=== PATIENT | female | born 1990 | race Caucasian/White ===

== ENCOUNTER 2025-03-25 07:36 | Outpatient (REF) | payer OTHER, SELFPAY ==
--- OUTSIDE RECORDS SUMMARY | 2025-03-25 07:39 | XMS_ITS | Clinical Summary ---
Author Organization [address] [place] [address] [place] [phone] Phone Care Team Providers Care [employer] Inspector Name Role Phone Lawanda Correa MD Primary Care Prov ider Allergies Active Allergy Reactions Criticality Noted Date Comments Bupropion Hcl Other 05/23/2013 Suicidal tendencies Cefaclor 05/23/2013 Medications albuterol HFA (PROAIR HFA ; PROVENTIL HFA ; VENTOLIN HFA) 90 mcg/actuation inhaler Inhale 2 puffs by mouth every 6 (six) hours if needed for wheezing or shortness of breath. 6.7 g 07/10/20 24 Active ammonium lactate (LAC-HYDRIN) 12 % lotion Apply topically 1 (one) time each day. to soles of feet, wear socks to bed 03/15/20 23 Active escitalopram (LEXAPRO) 5 mg tablet 09/07/19 24 Active fluticasone propionate (FLONASE) 50 mcg/actuation nasal spray Administer 2 sprays into each nostril 1 (one) time each day. 06/22/20 23 Active hydrOXYzine HCL (ATARAX) 10 mg tablet Take 1 tablet (10 mg total) by mouth 2 (two) times a day if needed. Active lamoTRIgine (LaMICtal) 25 mg tablet Take 1 tablet (25 mg total) by mouth 1 (one) time each day. FOR 2 WEEKS THEN 2 TABLETS DAILY Active zolpidem CR (AMBIEN CR) 12.5 mg CR tablet Take 1 tablet (12.5 mg total) by mouth at bedtime as needed. 11/25/19 21 Active ondansetron (ZOFRAN) 4 mg tablet Take 1-2 tablets (4-8 mg total) by mouth every 8 (eight) hours if needed for nausea. 06/06/20 23 Active amphetamine-dext roamphetamine XR (ADDERALL XR) 20 mg 24 hr capsule Take 2 capsules (40 mg total) by mouth 1 (one) time each day in the morning. Active cloNIDine (CATAPRES) 0.1 mg tablet 09/07/19 21 Active mv-min/folic/vit K/lycop/coQ10 (DAILY MULTIVITAMIN ORAL) Take by mouth. Activ e ascorbic acid (VITAMIN C) 500 mg chewable tablet Chew. Active acetaminophen (TYLENOL 8 HOUR) 650 mg 8 hr tablet Take 1 tablet (650 mg total) by mouth every 8 (eight) hours if needed for mild pain. Do not crush, chew, or split. 30 tablet 01/17/20 25 Active oxyCODONE (ROXICODONE) 5 mg immediate release tablet Take 1 tablet (5 mg total) by mouth every 6 (six) hours if needed for severe pain for up to 6 doses. Max Daily Amount: 20 mg 6 tablet 01/17/20 25 Active Additional Information Patient not taking.Reported on 01/27/2025 gabapentin (NEURONTIN) 100 mg capsuleIndicatio ns:Right carpal tunnel syndrome Take 1 capsule (100 mg total) by mouth at bedtime. 30 capsule 02/29/20 25 Active gabapentin (NEURONTIN) 100 mg capsuleIndicatio ns:Right carpal tunnel syndrome Take 1 capsule (100 mg total) by mouth at bedtime. 30 capsule 01/11/20 25 025 Discontin ued(Reord er) Active Problems Problem Noted Date Diagnosed Date Carpal tunnel syndrome on left 02/07/2025 Right carpal tunnel syndrome 12/02/2024 Carpal tunnel syndrome of left wrist 12/02/2024 Major depression 08/21/2024 PTSD (post-traumatic stress disorder) 08/21/2024 Amblyopia of left eye 07/10/2024 Gastroesophageal reflux disease 07/10/2024 Genital herpes simplex 07/10/2024 Pancreatitis 07/10/2024 Mixed anxiety depressive disorder 07/10/2024 Tinea cruris 07/10/2024 Morbid obesity ([facility] V24, [facility] V28) 2022 COVID 08/11/2021 Alcohol abuse 11/15/2018 Anxiety 11/15/2018 Binge eating 11/15/2018 Borderline personality disorder ([facility] V24, [facility] V28) 11/15/2018 Severe episode of recurrent major depressive disorder, without psychotic features ([facility] V24, [facility] V28) 11/15/2018 Asthma 05/23/2013 Overview (07/10/2024): With exercise and URI Knee problem 05/23/2013 Encounters Date Type Department Care Team Description 02/28/2025 10:15 AM EDT Office Visit Orthopedic Surgery [facility] [address] [phone] Greer Billingsley MD Right carpal tunnel syndrome 02/07/2025 Telephone Orthopedic Surgery [facility] [address] [phone] Gabriel Cifuentes 02/07/2025 Telephone Orthopedic Surgery [facility] [address] [phone] Greer Billingsley MD 02/04/2025 Telephone Orthopedic Surgery [facility] [address] [phone] Greer Billingsley MD 01/27/2025 2:15 PM EDT Office Visit Orthopedic Surgery [facility] [address] [phone] Jacquie Mckinney PA S/P carpal tunnel release (Primary Dx) 01/16/2025 7:35 AM EDT Anesthesia Event [facility] OR [address] [place] [phone] Mai Hackett MD Elliott, Barbara J, CRNA 01/16/2025 7:30 AM EDT - 01/16/2025 8:45 AM EDT Surgery [facility] OR [address] [place] [phone] Greer Billingsley MD ENDOSCOPIC RELEASE RIGHT CARPAL TUNNEL [[id number] (CPT )] 01/16/2025 5:49 AM EDT - 01/16/2025 9:09 AM EDT Hospital Encounter [facility] OR [address] [place] [phone] Greer Billingsley MD Discharge Disposition: Home or Self Care 01/10/2025 Telephone Orthopedic Surgery [facility] [address] [phone] Greer Billingsley MD 01/02/2025 Telephone Orthopedic Surgery [facility] [address] [phone] Greer Billingsley MD from Last 3 Months Immunizations Name Administration Dates Next Due Influenza Quadravalent, MDCK , 0.5ml, preservative free (Flucelvax) 6mo and older 07/13/2016 Influenza Quadrivalent, 0.5m l, preservative free (Fluarix; FluLaval; Fluzone) ages 6mo and older (Afluria) 3yo and older 04/26/2019 Influenza trivalent, with pr eservative (Fluzone; Afluria) 6mo and older 08/05/2014,05/23/2013 Pneumococcal polysaccharide 23 valent (Pneumovax 23) 2yo and older 08/05/2014 Tdap Tetanus diptheria acell ular pertussis (Boostrix; Adacel) 7yo and older 09/04/2020,09/03/2015,05/23/2013 Surgical History Surgery Date Site/Laterality Comments SECTION, LOW TRANSVERSE CARPAL TUNNEL RELEASE 01/16/2025 Right Right endoscopic carpal tunnel release Medical History Medical History Date Comments Asthma 05/23/2013 DX:Asthma; COMME NT: With exercise and URI Amblyopia 05/23/2013 DX:Amblyopia PTSD (post-traumatic stress disorder) 05/23/2013 DX:PTSD (post-traumatic stress disorder) Major depression 05/23/2013 DX:Major depres liam Knee problem 05/23/2013 DX:Knee problem H/O section 12/14/2015 DX:H/O cesa rean section Psychiatric illness Family History Medical History Relation Name Comments Cervical cancer Aunt 1 maternal aun t Breast cancer Aunt 2 second primary -50 Breast cancer Aunt 3 unilateral Diabetes Father Hypertension Father Other cancer Maternal Grandfather brain-d ied in his 50s Other: cardiac arrest Maternal Grandmother in her 70s Diabetes Mother Mental illness Mother bipolar; diab etes in her 40s-accidental OD Other: etoh Paternal Grandfather in his 40s-liver disease Hypertension Paternal Grandmother ? cause of at age 83 Other: seizures Sister febrile Brain cancer Uncle 1 paternal Other: cancer,other Uncle 2 paternal ; ? primary-colon or prostate Relation Name Status Comments Aunt 1 Aunt 2 Aunt 3 Father Maternal Grandfather Maternal Grandmother Mother Paternal Grandfather Paternal Grandmother Sister Uncle 1 Uncle 2 Social History Tobacco Use Types Packs/Day Years Used Date Smoking Tobacco: Never Smokeless Tobacco: Never Tobacco Cessation:Counseling Given: Not Answered Alcohol Use Standard Drinks/Week Comments Yes 5 (1 standard drink = 0.6 oz pur e alcohol) Interpersonal Safety Answer Date Record ed Physical Abuse 01/16/2025 Verbal Abuse 01/16/2025 Comments No Sex and Gender Information Value Date Recorded Sex Assigned at Not on file Legal Sex Female 6:02 AM EST Gender Identity Not on file Sexual Orientation Not on file Obstetrics History Last Filed Vital Signs Vital Sign Reading Time Taken Comments Blood Pressure 127/77 01/16/2025 8:25 AM EDT Pulse 77 01/16/2025 8:25 AM EDT Temperature 36.5 C (97.7 F) 01/16/2025 8:25 AM EDT Respiratory Rate 16 01/16/2025 8:25 AM EDT Oxygen Saturation 99% 01/16/2025 6:04 AM EDT Inhaled Oxygen Concentration - - Weight 122 kg (270 lb) 02/28/2025 10:44 AM EDT Height 167.6 cm (5' 6 ) 02/28/2025 10:44 AM EDT Body Mass Index 43.58 02/28/2025 10:44 AM EDT Plan of Treatment Health Maintenance Due Date Last Done Comments Hepatitis A Vaccines (1 of 2 - Risk 2-dose series) 2009 Hepatitis B Vaccines (1 of 3 - 19+ 3-dose series) 2009 Pneumococcal Vaccine: Pediatrics (0 to 5 Years) and At-Risk Patients (6 to 49 Years) (2 of 2 - PCV) 08/05/2015 08/05/2014 Cervical Cancer Screening: Pap Smear 12/04/2021 12/04/2018 HIV Screening 06/26/2022 Hepatitis C Screening 06/26/2022 Medicare Annual Wellness Visit 06/26/2022 Social Influencers of Health Screening 06/26/2022 Depression Screening 07/24/2024 10/03/2023 COVID-19 Vaccine ( - season) 2025 07/21/2022, 04/12/2021, 03/15/2021 Influenza Vaccine (#1) 2025 9, 07/13/2016, 08/05/2014, Additional history exists Cholesterol Screening (Lipid Panel) 01/20/2028 01/19/2023 DTaP,Tdap,and Td Vaccines (4 - Td or Tdap) 09/04/2030 09/04/2020, 09/03/2015, 05/23/2013 HIB Vaccines Aged Out No longer eligi ble based on patient's age to complete this topic HPV Vaccines Aged Out No longer eligi ble based on patient's age to complete this topic IPV Vaccines Aged Out No longer eligi ble based on patient's age to complete this topic MMR Vaccines Aged Out No longer eligi ble based on patient's age to complete this topic Meningococcal ACWY Vaccine Aged Out N o longer eligible based on patient's age to complete this topic Meningococcal B Vaccine Aged Out No l onger eligible based on patient's age to complete this topic RSV Immunization Patients Under 20 months Aged Out No longer eligible based on patient's age to complete this topic Varicella Vaccines Aged Out No longer eligible based on patient's age to complete this topic Procedures Procedure Name Priority Date/Time Associated Diagnosis Comments TX ENDOSCOPY WRIST SURGICAL WITH RELEASE TRANSVERSE CARPAL LIGAMENT 01/16/2025 7:35 AM EDT Right carpal tunnel syndrome Case Notes [facility] CT tower Special Needs R/S FROM 12/25 PER GABRIEL VIA TEAMS 12/17 DEPRESSION SCREENING Routine 10/03/2023 LIPID PANEL Routine 01/19/2023 PAP SMEAR Routine 12/04/2018 from Last 3 Months or Most Recently Relevant to Health Maintenance Results * Depression Screening (10/03/2023) Depression Screening abstracted [facility] Provider HEALTH MAINTENANCE Final Result * (ABNORMAL) Lipid panel (01/19/2023) Pathologist [facility] LDL/HDL Ratio 4 0 - 4 Triglycerides 80 0 - 150 mg/dL Cholesterol 179 0 - 200 mg/dL HDL 43 >=40 mg/dL LDL Cholesterol 120(A) 0 - 100 mg/dL Blood Venous blood specimen / Unknown [facility] Provider LAB BLOOD ORDERABLES Sue l Result * Pap Smear (12/04/2018) Pap smear no interpretation , abstracted [facility] Provider HEALTH MAINTENANCE Final Result from Last 3 Months or Most Recently Relevant to Health Maintenance Insurance [employer] Member Subscriber Plan / Payer (Ef fective 2021-Present) Name:HELEN RAE Relation to Subscriber:Self Name:Helen Rae Payer ID:[id number] Group ID:[id number] Type:Not on file Address: [address] [facility] [place] [phone] Care Teams [employer] Inspector Relationship Specialty Start Date End Date Lawanda Correa MD PCP - General Internal Medicine 12/09/20
[2025-03-25 08:05] LABS: MANUAL DIFF FLAG NO
[2025-03-25 08:25] LABS: Hematocrit 40.3 % (37.0-47.0); Hemoglobin 13.5 g/dl (12.0-16.0); Imm Gran Abs Auto 0.02 X10*3/uL (0.00-0.03); Imm Gran Pct Auto 0.2 % (0.0-0.4); Lymphocytes Absolute Auto 3.5 X10*3/uL (1.2-4.9); Mean Corpuscular HGB Conc 33.5 g/dl (31.0-35.0); Mean Corpuscular Hemoglobin 29.0 pg (27.0-33.0); Mean Corpuscular Volume 86.5 fL (80.0-98.0); NRBC Abs Auto 0.000 X10*3/uL (0.0-0.012); NRBC Pct Auto 0.0 /100WBC (0.0-0.2); Platelet Count 278 X10*3/uL (160-400); Red Blood Count 4.66 X10*6/uL (4.20-5.50); White Blood Count 8.4 X10*3/uL (4.8-10.8)
[2025-03-25 08:31] LABS: Hemoglobin A1C 108.9767 umol/L; Total Hemoglobin (HGBA1C) 3539.8295 umol/L
[2025-03-25 09:25] LABS: Folate 10.4 ng/mL (> or = 4.0); Vitamin B12 194 pg/mL (200-900)
[2025-03-25 09:47] LABS: Alanine Aminotransferase 7 U/L (0-31); Albumin Level 4.2 g/dL (3.5-5.0); Alkaline Phosphatase 80 U/L (39-117); Anion Gap 10 (12-20); Aspartate Amino Transferase 18 U/L (5-31); Blood Urea Nitrogen 10 mg/dL (9-16); Calcium 8.8 mg/dL (8.4-10.2); Carbon Dioxide 28 mmol/L (22-29); Chloride 104 mmol/L (96-108); Cholesterol 176 mg/dL (<200); Estimated Glomerular Filt Rate > 60; Gamma Glutamyl Transpeptidase 35 U/L (7-33); HDL Cholesterol 55 mg/dL (>40); Iron 179 mcg/dL (30-160); Lipase 10 U/L (8-78); Percent Iron Saturation 68 % (15-50); Potassium 4.0 mmol/L (3.3-5.1); Sodium 138 mmol/L (135-145); Total Iron Binding Capacity 265 mcg/dL (228-428); Total Protein 6.8 g/dL (6.5-8.0); Triglycerides 83 mg/dL (<150); Unsaturated Iron Binding 86 ug/dL
[2025-03-25 09:57] LABS: Parathyroid Hormone Intact 91.2 pg/mL (8.7-77.1)
[2025-03-25 10:01] LABS: Free T4 (Free Thyroxine) 1.11 ng/dL (0.71-1.85); Thyroid Stimulating Hormone 1.40 uIU/mL (0.32-4.0)
[2025-03-29 08:02] LABS: Triiodothyronine T3 Reverse 24 ng/dL (8-25)
--- OUTSIDE RECORDS SUMMARY | 2025-05-15 20:00 | XMS_ITS | Clinical Summary ---
Author Organization Unknown Care Team Providers Care Sales Program Manager Name Role Phone CATHY BROWN, EDEL Unavailable Unavaillaura ROBERTSON RN, JHONNY Unavailable Unavailable Payers Payer Name Policy Type Policy Number Effective Date Expira tion Date [facility] [id number] MEDICAID [id number] [id number] MEDICARE - [facility] [id number] Problems Condition Name Condition Details Condition Category Status Onset Date Resolution Date Last Treatment Date Treating Clinician Comments MAJOR DEPRESSV DISORDER, RECURRENT SEVERE W/O PSYCH FEATURES Active 07-30 00:00: 00 Allergies, Adverse Reactions, Alerts Allergy Name Allergy Type Status Severity Reaction(s) Onset Date Inactive Date Treating Clinician Comments WELLBUTRIN Propensity to adverse reactions Active 08-08 15:35: 31 Medications Ordered Medication Name Filled Medication Name Start Date Stop Date Current Medication? Ordering Clinician Indication Dosage Frequency Signature (SIG) Comments Components Ambien 10 mg tablet - 00:00: 00 12-31 23:59 :00 No [id number] 10 mg Hs 10 mg Hs (route: oral) Med Classific ation: Central Nervous System Agents citalopram 20 mg tablet - 00:00: 00 12-10 23:59 :00 No [id number] 1 tablet EVERY DAY 1 tablet EVERY DAY (route: oral) Alternate Route: BY MOUTH. Med Classific ation: Central Nervous System Agents clonidine HCl 0.1 mg tablet - 00:00: 00 06-05 23:59 :00 No [id number] 1 tablet Hs 1 tablet Hs (route: oral) Med Classific ation: Cardiovas cular Therapy Agents fluticasone propionate 50 mcg/actuati on nasal spray,suspe nsion 1-14 00:00: 00 11-28 23:59 :00 No [id number] 2 spray DAILY FOR 7 DAYS 2 spray DAILY FOR 7 DAYS (route: nasal) Alternate Route: 2 SPRAYS BY NASAL ROUTE. Med Classific ation: Respirato ry Therapy Agents hydroxyzine HCl 25 mg tablet 08-01 00:00: 00 11-15 23:59 :00 No [id number] FOR ANXIETY 2 tablet TWICE A DAY NEEDED 2 tablet TWICE A DAY NEEDED (route: oral) Alternate Route: BY MOUTH. Med Classific ation: Central Nervous System Agents Lamictal 100 mg tablet 12-23 00:00: 00 12-10 23:59 :00 No [id number] 1 tablet DAILY 1 tablet DAILY (route: oral) Med Classific ation: Central Nervous System Agents quetiapine 25 mg tablet 08-01 00:00: 00 10-30 23:59 :00 No [id number] FOR ANXIETY 1 tablet THREE TIMES A DAY NEEDED 1 tablet THREE TIMES A DAY NEEDED (route: oral) Alternate Route: BY MOUTH. Med Classific ation: Central Nervous System Agents citalopram 10 mg tablet 12-11 00:00: 00 12-31 23:59 :00 No [id number] 3 tablet DAILY 3 tablet DAILY (route: oral) Med Classific ation: Central Nervous System Agents Lamictal 200 mg tablet 12-11 00:00: 00 12-31 23:59 :00 No [id number] 1 tablet DAILY 1 tablet DAILY (route: oral) Med Classific ation: Central Nervous System Agents Ambien CR 12.5 mg tablet,exte nded release 12-31 00:00: 00 08-06 23:59 :00 No [id number] 1 tablet BEDTIME 1 tablet BEDTIME (route: oral) Med Classific ation: Central Nervous System Agents Celexa 40 mg tablet 12-31 00:00: 00 08-06 23:59 :00 No [id number] 1 tablet DAILY 1 tablet DAILY (route: oral) Med Classific ation: Central Nervous System Agents Lamictal 25 mg tablet 12-31 00:00: 00 2022- 03-15 23:59 :00 No [id number] 1 tablet DAILY 1 tablet DAILY (route: oral) Med Classific ation: Central Nervous System Agents Adderall 20 mg tablet 1-14 00:00: 00 Yes [id number] 2 tablet DAILY 2 tablet DAILY (route: oral) Med Classific ation: Central Nervous System Agents Ambien 5 mg tablet 1-14 00:00: 00 06-05 23:59 :00 No [id number] 1 tablet BEDTIME 1 tablet BEDTIME (route: oral) Med Classific ation: Central Nervous System Agents Celexa 20 mg tablet 1-14 00:00: 00 08-30 23:59 :00 No [id number] 1 tablet DAILY 1 tablet DAILY (route: oral) Med Classific ation: Central Nervous System Agents Lamictal 25 mg tablet 3-15 00:00: 00 04-01 23:59 :00 No [id number] 2 tablet DAILY 2 tablet DAILY (route: oral) Med Classific ation: Central Nervous System Agents Lamictal 100 mg tablet 9-11 00:00: 00 07-29 23:59 :00 No [id number] 1 tablet DAILY 1 tablet DAILY (route: oral) Med Classific ation: Central Nervous System Agents Lamictal 150 mg tablet 1-09 00:00: 00 09-23 23:59 :00 No [id number] 1 tablet DAILY 1 tablet DAILY (route: oral) Med Classific ation: Central Nervous System Agents Lexapro 5 mg tablet 2-07 00:00: 00 11-15 23:59 :00 No [id number] 1 tablet DAILY 1 tablet DAILY (route: oral) Med Classific ation: Central Nervous System Agents Lamictal 200 mg tablet 3-03 00:00: 00 05-12 23:59 :00 No [id number] 1 tablet DAILY 1 tablet DAILY (route: oral) Med Classific ation: Central Nervous System Agents hydroxyzine HCl 10 mg tablet 4-25 00:00: 00 10-30 23:59 :00 No [id number] 1 tablet DAILY 1 tablet DAILY (route: oral) Med Classific ation: Central Nervous System Agents Trintellix 5 mg tablet 4-25 00:00: 00 09-24 23:59 :00 No [id number] 1 tablet DAILY 1 tablet DAILY (route: oral) Med Classific ation: Central Nervous System Agents fluticasone propionate 50 mcg/actuati on nasal spray,suspe nsion 11-29 00:00: 00 06-05 23:59 :00 No [id number] 2 spray EVERY AM 2 spray EVERY AM (route: nasal) Alternate Route: 2 SPRAYS BY NASAL ROUTE. Med Classific ation: Respirato ry Therapy Agents Lamictal 25 mg tablet 2022-07 0-20 00:00: 00 10-30 23:59 :00 No [id number] 1 tablet DAILY 1 tablet DAILY (route: oral) Med Classific ation: Central Nervous System Agents Allergy Relief (fluticason e) 50 mcg/actuati on nasal spray,suspe nsion 2022-07 00:00: 00 Yes [id number] 1 spray DAILY 1 spray DAILY (route: nasal) Med Classific ation: Respirato ry Therapy Agents Ambien 5 mg tablet 2022-07 00:00: 00 Yes [id number] 1 tablet BEDTIME 1 tablet BEDTIME (route: oral) Med Classific ation: Central Nervous System Agents clonidine HCl 0.1 mg tablet 2022-07 00:00: 00 Yes [id number] 1 tablet BEDTIME 1 tablet BEDTIME (route: oral) Med Classific ation: Cardiovas cular Therapy Agents Lexapro 5 mg tablet 08-01 00:00: 00 10-30 23:59 :00 No [id number] 1 tablet DAILY 1 tablet DAILY (route: oral) Med Classific ation: Central Nervous System Agents Lamictal 100 mg tablet 10-30 00:00: 00 Yes [id number] .5 tablet DAILY .5 tablet DAILY (route: oral) Med Classific ation: Central Nervous System Agents Lexapro 10 mg tablet 10-30 00:00: 00 Yes [id number] 1 tablet DAILY 1 tablet DAILY (route: oral) Med Classific ation: Central Nervous System Agents Paxlovid 300 mg (150 mg x 2)-100 mg tablets in a dose pack 2023-07 00:00: 00 11-13 23:59 :00 No [id number] Per instruc tions DIRECTED Per instructio ns DIRECTED (route: oral) Med Classific ation: Anti-Infe ctive Agents PRAZOSIN ORAL 1-09 00:00: 00 12-23 00:00 :00 No 2 mg1 CAPSULE EVERYDAY AT BEDTIME 2 mg1 CAPSULE EVERYDAY AT BEDTIME (route: ) Alternate Route: BY MOUTH. Med Classific ation: CARDIOVAS CULAR THERAPY AGENTS LAMICTAL ORAL 3-27 00:00: 00 12-23 00:00 :00 No 25 [id number] DAILY 25 [id number] DAILY (route: ) Med Classific ation: CENTRAL NERVOUS SYSTEM AGENTS Plan of Treatment Planned Activity Planned Date Details Comments Future Scheduled Test SKILLED NU RSE TO EVALUATE PATIENT, IDENTIFY PRIMARY AND CO-MORBID CONDITIONS CODED PER CODING GUIDELINES, AND DEVELOP PATIENT SPECIFIC PLAN OF CARE THAT INCLUDES PATIENT GOAL FOR HOME HEALTH. [code = SKILLED NURSE TO EVALUATE PATIENT, IDENTIFY PRIMARY AND CO-MORBID CONDITIONS CODED PER CODING GUIDELINES, AND DEVELOP PATIENT SPECIFIC PLAN OF CARE THAT INCLUDES PATIENT GOAL FOR HOME HEALTH.] Future Scheduled Test SKILLED NU RSE TO PERFORM HOME SAFETY AND FALL ASSESSMENT AND PROVIDE INSTRUCTION TO IMPLEMENT HOME SAFETY AND FALL PREVENTION STRATEGIES. [code = SKILLED NURSE TO PERFORM HOME SAFETY AND FALL ASSESSMENT AND PROVIDE INSTRUCTION TO IMPLEMENT HOME SAFETY AND FALL PREVENTION STRATEGIES.] Future Scheduled Test SKILLED NU RSE FOR OBSERVATION AND ASSESSMENT OF PATIENT S PAIN LEVEL AND EFFECTIVENESS OF PAIN MANAGEMENT REGIMEN. SKILLED NURSE TO INSTRUCT PATIENT/CAREGIVER REGARDING PHARMACOLOGIC AND NON-PHARMACOLOGIC PAIN CONTROL MEASURES. SKILLED NURSE TO REPORT TO PHYSICIAN IF PAIN IS UNCONTROLLED WITH CURRENT PAIN MANAGEMENT REGIMEN. [code = SKILLED NURSE FOR OBSERVATION AND ASSESSMENT OF PATIENT S PAIN LEVEL AND EFFECTIVENESS OF PAIN MANAGEMENT REGIMEN. SKILLED NURSE TO INSTRUCT PATIENT/CAREGIVER REGARDING PHARMACOLOGIC AND NON-PHARMACOLOGIC PAIN CONTROL MEASURES. SKILLED NURSE TO REPORT TO PHYSICIAN IF PAIN IS UNCONTROLLED WITH CURRENT PAIN MANAGEMENT REGIMEN.] Future Scheduled Test SKILLED NU RSE TO ASSESS PATIENT'S SKIN INTEGRITY AND INSTRUCT PATIENT/CAREGIVER ON MEASURES TO PREVENT PRESSURE ULCERS. [code = SKILLED NURSE TO ASSESS PATIENT'S SKIN INTEGRITY AND INSTRUCT PATIENT/CAREGIVER ON MEASURES TO PREVENT PRESSURE ULCERS.] Future Scheduled Test PATIENT PRADO S A RISK OF HOSPITALIZATION AND ED USE. SKILLED NURSE TO ESTABLISH SUPPORT MEASURES TO MINIMIZE RISK OF HOSPITALIZATION AND ED USE, AND INSTRUCT PATIENT/CAREGIVER ON METHODS TO REDUCE AVOIDABLE HOSPITALIZATION AND ED USE. [code = PATIENT HAS A RISK OF HOSPITALIZATION AND ED USE. SKILLED NURSE TO ESTABLISH SUPPORT MEASURES TO MINIMIZE RISK OF HOSPITALIZATION AND ED USE, AND INSTRUCT PATIENT/CAREGIVER ON METHODS TO REDUCE AVOIDABLE HOSPITALIZATION AND ED USE.] Future Scheduled Test SKILLED NU RSE TO PROVIDE INSTRUCTION TO PATIENT/CAREGIVER RELATED TO DISCHARGE PLANNING. [code = SKILLED NURSE TO PROVIDE INSTRUCTION TO PATIENT/CAREGIVER RELATED TO DISCHARGE PLANNING.] Future Scheduled Test SKILLED NU RSE TO O/A OF PATIENTS MENTAL/BEHAVIORAL STATUS, ASSESS VITAL SIGNS WEEKLY ALLOW 2 PRNS FOR MEDICATION MANAGEMENT. [code = SKILLED NURSE TO O/A OF PATIENTS MENTAL/BEHAVIORAL STATUS, ASSESS VITAL SIGNS WEEKLY ALLOW 2 PRNS FOR MEDICATION MANAGEMENT.] Future Scheduled Test SKILLED NU RSE WILL MAINTAIN SITUATIONAL AWARENESS FOR SAFETY AND WILL NOTIFY CLINICAL METAL DRILLING MACHINE OPERATOR AND PHYSICIAN/PROVIDER WITH ANY CHANGE IN CONDITION. [code = SKILLED NURSE WILL MAINTAIN SITUATIONAL AWARENESS FOR SAFETY AND WILL NOTIFY CLINICAL METAL DRILLING MACHINE OPERATOR AND PHYSICIAN/PROVIDER WITH ANY CHANGE IN CONDITION.] Future Scheduled Test SKILLED NU RSE FOR O/A OF GENERAL HEALTH STATUS OF PAIN, CARDIAC, RESPIRATORY, GASTROINTESTINAL, GENITOURINARY, SKIN, NEUROLOGIC, ENDOCRINE SYSTEMS TO IDENTIFY CHANGES ASSOCIATED WITH EXACERBATION FOR EARLY INTERVENTION OF COMPLICATIONS [code = SKILLED NURSE FOR O/A OF GENERAL HEALTH STATUS OF PAIN, CARDIAC, RESPIRATORY, GASTROINTESTINAL, GENITOURINARY, SKIN, NEUROLOGIC, ENDOCRINE SYSTEMS TO IDENTIFY CHANGES ASSOCIATED WITH EXACERBATION FOR EARLY INTERVENTION OF COMPLICATIONS] Future Scheduled Test SKILLED NU RSE TO REVIEW PATIENT MEDICATIONS. INSTRUCT PATIENT/CAREGIVER ON MONITORING OF EFFECTIVENESS, ADVERSE DRUG REACTIONS, SIDE EFFECTS OF ALL MEDICATIONS (PRESCRIPTION/-OTC), AND HOW AND WHEN TO REPORT PROBLEMS. [code = SKILLED NURSE TO REVIEW PATIENT MEDICATIONS. INSTRUCT PATIENT/CAREGIVER ON MONITORING OF EFFECTIVENESS, ADVERSE DRUG REACTIONS, SIDE EFFECTS OF ALL MEDICATIONS (PRESCRIPTION/-OTC), AND HOW AND WHEN TO REPORT PROBLEMS.] Future Scheduled Test SKILLED NU RSE TO ADMINISTER MEDICATIONS AND PRE-POUR MEDICATIONS WEEKLY PER MEDICATION LIST. [code = SKILLED NURSE TO ADMINISTER MEDICATIONS AND PRE-POUR MEDICATIONS WEEKLY PER MEDICATION LIST.] Future Scheduled Test SKILLED NU RSE FOR O/A AND SKILLED TEACHING RELATED TO MANAGEMENT OF DEPRESSIVE SYMPTOMS AND/OR DEPRESSION. SN TO REPORT SIGNIFICANT CHANGE IN DEPRESSIVE SYMPTOMS TO CLINICAL PROVIDER FOR EARLY INTERVENTION. [code = SKILLED NURSE FOR O/A AND SKILLED TEACHING RELATED TO MANAGEMENT OF DEPRESSIVE SYMPTOMS AND/OR DEPRESSION. SN TO REPORT SIGNIFICANT CHANGE IN DEPRESSIVE SYMPTOMS TO CLINICAL PROVIDER FOR EARLY INTERVENTION.] Future Scheduled Test SKILLED NU RSE TO ASSESS PATIENT S PSYCHOSOCIAL STATUS TO IDENTIFY POTENTIAL ISSUES THAT MAY COMPLICATE THE PROVISION OF THE PLAN OF CARE INCLUDING THE PATIENT S ABILITY TO ACCESS COMMUNITY RESOURCES AND PSYCHOSOCIAL SUPPORT SERVICES. [code = SKILLED NURSE TO ASSESS PATIENT S PSYCHOSOCIAL STATUS TO IDENTIFY POTENTIAL ISSUES THAT MAY COMPLICATE THE PROVISION OF THE PLAN OF CARE INCLUDING THE PATIENT S ABILITY TO ACCESS COMMUNITY RESOURCES AND PSYCHOSOCIAL SUPPORT SERVICES.] Future Scheduled Test MEDICATION S WILL BE HELD AND STORED IN LOCKBOX [code = MEDICATIONS WILL BE HELD AND STORED IN LOCKBOX] Goal 2021-09-30 Patient Goal - T HECPT WITH MANAGE SYMPTOMS AND BE COMPLIANT WITH MEDS Goal 2021-11-29 Patient Goal - T HE PT WITH MANAGE SYMPTOMS AND BE COMPLIANT WITH MEDS Goal 2022-02-01 Patient Goal - T HE PT WITH MANAGE SYMPTOMS AND BE COMPLIANT WITH MEDS Goal 2022-04-01 Patient Goal - T HE PT WITH MANAGE SYMPTOMS AND BE COMPLIANT WITH MEDS Goal 2022-05-31 Patient Goal - T HE PT WITH MANAGE SYMPTOMS AND BE COMPLIANT WITH MEDS Goal 2022-07-29 Patient Goal - T HE PT WITH MANAGE SYMPTOMS AND BE COMPLIANT WITH MEDS Goal 2022-09-27 Patient Goal - T HE PT WITH MANAGE SYMPTOMS AND BE COMPLIANT WITH MEDS Goal 2022-11-25 Patient Goal - T HE PT WITH MANAGE SYMPTOMS AND BE COMPLIANT WITH MEDS Goal 2023-01-25 Patient Goal - T HE PT WITH MANAGE SYMPTOMS AND BE COMPLIANT WITH MEDS Goal 2023-03-28 Patient Goal - T HE PT WITH MANAGE SYMPTOMS AND BE COMPLIANT WITH MEDS Goal 2023-05-26 Patient Goal - T HE PT WITH MANAGE SYMPTOMS AND BE COMPLIANT WITH MEDS Goal 2023-07-26 Patient Goal - T HE PT WITH MANAGE SYMPTOMS AND BE COMPLIANT WITH MEDS Goal 2023-09-22 Patient Goal - T HE PT WITH MANAGE SYMPTOMS AND BE COMPLIANT WITH MEDS Goal 2023-11-21 Patient Goal - T HE PT WITH MANAGE SYMPTOMS AND BE COMPLIANT WITH MEDS Goal 2024-01-19 Patient Goal - T HE PT WITH MANAGE SYMPTOMS AND BE COMPLIANT WITH MEDS Goal 2024-05-21 Patient Goal - T HE PT WITH MANAGE SYMPTOMS AND BE COMPLIANT WITH MEDS Goal 2024-07-19 Patient Goal - T HE PT WITH MANAGE SYMPTOMS AND BE COMPLIANT WITH MEDS Goal 2024-09-18 Patient Goal - T HE PT WITH MANAGE SYMPTOMS AND BE COMPLIANT WITH MEDS Goal 2024-11-13 Patient Goal - T HE PT WITH MANAGE SYMPTOMS AND BE COMPLIANT WITH MEDS Goal 2025-01-16 Patient Goal - T HE PT WITH MANAGE SYMPTOMS AND BE COMPLIANT WITH MEDS Goal 2025-03-14 Patient Goal - T HE PT WITH MANAGE SYMPTOMS AND BE COMPLIANT WITH MEDS Goal Patient Goal - T HE PT WITH MANAGE SYMPTOMS AND BE COMPLIANT WITH MEDS Goal 2024-03-20 Patient Goal - T HE PT WITH MANAGE SYMPTOMS AND BE COMPLIANT WITH MEDS Goal Provider Goal - A PLAN OF CARE WILL BE ESTABLISHED THAT MEETS PATIENT'S CORRECTION NEEDS AND INCLUDES PATIENT GOAL FOR HOME HEALTH. Goal Provider Goal - PATIENT/CAREGIVER WILL VERBALIZE/DEMONSTRATE EFFECTIVE HOME SAFETY AND FALL PREVENTION STRATEGIES THROUGHOUT CERTIFICATION PERIOD. Goal Provider Goal - PATIENT/CAREGIVER WILL DEMONSTRATE UNDERSTANDING OF PHARMACOLOGIC AND NONPHARMACOLOGIC PAIN CONTROL MEASURES AND PATIENT WILL HAVE IMPROVEMENT IN PAIN INTERFERING WITH ACTIVITY EVIDENCED BY PAIN AT A LEVEL THAT IS ACCEPTABLE TO THE PATIENT AND PAIN LEVEL WITHIN ESTABLISHED PARAMETERS BY END OF CERTIFICATION PERIOD. Goal Provider Goal - PATIENT/CAREGIVER WILL VERBALIZE UNDERSTANDING OF PRESSURE ULCER PREVENTION BY END OF THE EPISODE. Goal Provider Goal - PATIENT WILL HAVE SUPPORT MEASURES ESTABLISHED TO PREVENT HOSPITALIZATION AND ED USE AND PATIENT/CAREGIVER WILL VERBALIZE/DEMONSTRATE METHODS TO REDUCE AVOIDABLE HOSPITALIZATION AND ED USE BY END OF EPISODE. Goal Provider Goal - PATIENT/CAREGIVER WILL VERBALIZE UNDERSTANDING OF DISCHARGE PLANNING INSTRUCTIONS BY DATE OF DISCHARGE. Goal Provider Goal - ALTERED MENTAL/BEHAVIORAL STATUS WILL BE IDENTIFIED PROMPTLY AND INTERVENTION INITIATED QUICKLY TO MINIMIZE ASSOCIATED RISKS THROUGHOUT CERTIFICATION PERIOD. Goal Provider Goal - PATIENT WILL REMAIN SAFE IN THE COMMUNITY AND WILL BE FREE OF DANGER TO SELF AND OTHERS THROUGHOUT THE CERTIFICATION PERIOD. Goal Provider Goal - CHANGE IN GENERAL HEALTH STATUS WILL BE IDENTIFIED AND REPORTED TO PHYSICIAN FOR PROMPT INTERVENTION TO MINIMIZE ASSOCIATED RISKS THROUGHOUT CERTIFICATION PERIOD. Goal Provider Goal - PATIENT/CAREGIVER WILL VERBALIZE UNDERSTANDING OF EDUCATION PROVIDED ON MEDICATIONS BY THE END OF THE CERTIFICATION PERIOD. Goal Provider Goal - PATIENT WILL COMPLY WITH MEDICATION WHEN SKILLED NURSE ADMINISTERS AND PRE-POURS MEDICATION THROUGHOUT CERTIFICATION PERIOD. Goal Provider Goal - PATIENT WILL REMAIN SAFE WITHOUT DECOMPENSATION IN DEPRESSIVE CONDITION, WHILE MAINTAINING OPTIMAL LEVEL OF MENTAL HEALTH AND WELL BEING THROUGHOUT CERTIFICATION PERIOD. Goal Provider Goal - PSYCHOSOCIAL NEEDS WILL BE IDENTIFIED AND PLAN IMPLEMENTED TO MINIMIZE RISK THROUGHOUT CERTIFICATION PERIOD. Goal Provider Goal - MEDICATION WILL BE STORED IN LOCKBOX FOR SAFETY. Encounters Start Date/Time End Date/Time Encounter Type Admission Type Attending [facility] Care Department Encounter ID Discharge Date Discharge Status Discharge Condition Discharge Reason Percent Goals Met 2025-03-18 00:00:00 2025-05-16 00:00:00 Outpatient RECERTIFIC JHONNY BAUMANN [facility] [id number] 11.1 1
== END 2025-03-25 07:37 | disposition home or self-care (01) ==
LOC: HO.LAB 07:36
PROVIDERS: PCP Internal Medicine; Visit Provider Psychiatry & Neurology Psychiatry
DX: Z13.1 Encounter for screening for diabetes mellitus (principal); Z13.6 Encounter for screening for cardiovascular disorders; F39 Unspecified mood [affective] disorder
CPT/HCPCS: 36415; 80053; 80061; 82306; 82607; 82746; 82977; 83036; 83090; 83540; 83690; 83970; 84100; 84425; 84439; 84443; 84480; 84481; 84482; 85025; 85652; 86140

== ENCOUNTER → 2025-03-25 08:15 | Outpatient (BNV) | payer MEDICARE, MEDICAID, SELFPAY | PROVIDERS: Visit Provider Psychiatry & Neurology Psychiatry | DX: F33.2 Major depressive disorder, recurrent severe without psychotic features (principal); F10.10 Alcohol abuse, uncomplicated; F90.9 Attention-deficit hyperactivity disorder, unspecified type; F43.10 Post-traumatic stress disorder, unspecified; F41.1 Generalized anxiety disorder | CPT/HCPCS: 90792 ==

== ENCOUNTER 2025-04-03 10:00 | Outpatient (RCR) | payer OTHER, SELFPAY ==
[2025-03-10 11:52] VITALS: BMI 45.6
--- NOTE | 2025-03-10 14:11 | PC.ADMIT ---
Patient is a 34 year old single mother who was referred to [facility] by her therapist secondary to increased depression with passive SI and anxiety. Patient also reports that she wants to work on using healthier coping skills instead of using alcohol to cope with how she is feeling. Patient reports she has been binge drinking Vodka drinking 10-12 nips three days a week for the past couple of weeks. Prior to that she stopped drinking for a few weeks. Stated she has a history of alcohol induced pancreatitis and does not want this to happen again. She reports during periods of sobriety she has not experienced any withdrawal symptoms including no diaphoresis, no tremulousness, no nausea, no vomiting, no AH. Denied any current alcohol withdrawal sxs. VS BP 100/70 P 72. Patient reports last drink was on last Monday. Patient wants to quit drinking and has been making steps towards this by giving her father control of her money. Patient stated this is helping her as she lives next to several liquor stores. Patient is currently on a KASANDRA from work to work on mental health. Patient reports several stresses including being a single parent. Patient stated, I'm a Single parent trying to cope with work, house work, very hard to build my own structure. Patient is alert and oriented x4. She is calm and cooperative. She presented with depressed mood and affect. When asked about SI patient stated, Passive suicidal ideation I would be better off away from this or my daughter would be better off without me. Denied any plan or intention of killing herself. Patient stated she could never do that to her daughter as her mother committed suicide when patient was 19 years old. She reports he daughter is her protective factor. Patient also has a history of self harm by cutting. Reports she last self harmed a couple of months ago. When asked patient what she could do instead of self harm when feeling strong emotions patient stated she has been looking at a picture of her daughter that is on her phone.
[2025-03-10 14:12] VITALS: BP 100/70; PULSE 72; TEMP 36.6
[2025-03-10 16:15] LABS: Cannabinoid Screen Urine POSITIVE (Not Detect)
--- NOTE | 2025-03-13 18:04 | HO.PHP ---
A referral was faxed for a CSP worker through [facility] on 03/13/24
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
--- NOTE | 2025-03-19 08:14 | HO.PHP ---
SEN was contacted regarding the referral placed for CSP services for Emily: her new appt is scheduled for: Apr.01 at 1:30 [address] Manriquez MA Intake with [facility]
[2025-03-19 09:29] VITALS: BP 142/99; PULSE 63
--- NOTE | 2025-03-19 13:19 | HO.PHP ---
Emily approached [facility] staff member after group two expressing that she would like to leave due to not feeling well. PHP staff member assessed for safety, in which no safety concerns were reported. Emily disclosed she will be in attendance to program tomorrow if her migraine is gone but if it is not she will call Sunitha to inform her. [facility] staff member was receptive.
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
[2025-03-26 13:26] VITALS: BP 152/101; PULSE 72
--- NOTE | 2025-03-26 13:27 | PC.NURSE ---
9 BP 152/101 P 72. 8 BP 142/99. 9 BP 100/70 P 72. Patient denied any sxs of alcohol withdrawal. Denied anxiety, no tremors, no diaphoresis, no nausea, no vomiting, no H/A. Patient is alert and oriented x4. She is calm and cooperative. Patient on new medication including Naltrexone. Dr. Buenrostro is aware.
[2025-03-27 09:23] VITALS: BP 136/89; PULSE 65
--- NOTE | 2025-03-27 20:19 | P.PNPSP_ITS ---
Subjective Subjective Date of Service: 03/26/25 Reason For Visit: depression,PTSD,MDD,anxiety Interim History: Noted some jitteriness with increasing Vyvanse, although notes that it was better for focus although still struggles with attention/focus and feels there is room to improve. Since starting oxcarbazepine feels she is less snippy at her daughter. Reports irritability severity was 10/10 prior to OX[facility] and currently at 6/10. She is bumped up from QD to BID 150 mg. She has not yet increase t 300 mg but agrees to do so. DEnies any adverse effects. She is open to trialing guanfacine Er in AM with stimulant to see if this mitigates some of the jiterriness, heart racing feeling. Sleep, appetite are stable. Medication Compliance: Yes Side effects from medications: Yes (as noted above) Attending Groups: Yes Review of Systems Acute medical concerns: No Mental Status Exam Mental Status Exam Narrative: Appearance: Casually dressed. Grooming/hygiene wnl. Good eye contact Attitude:Cooperative Speech: Fluent and wnl in regard to volume, tone, prosody Motor activity: Calm and without any tics, tremors or dyskinesias. Steady gait Mood: as noted above Affect: appropriate, reactive Thought process: goal directed and without evidence of formal thought disorder Thought content: as noted above. Perception: does not appear to respond to internal stimuli Alert/oriented in all spheres Cognition grossly intact Insight: intact Judgment: fair Diagnostics Vital Signs (24Hr): Vital Signs - 24 hr 03/27/25 09:23 Pulse Rate 65 Blood Pressure 136/89 BMI result Body Mass Index 45.6 Assessment & Plan Assessment & Plan (1) MDD (major depressive disorder), recurrent severe, without psychosis: Status: Acute Code(s): F33.2 - Major depressive disorder, recurrent severe without psychotic features (2) Other specified persistent mood disorders: Status: Acute Code(s): F34.89 - Other specified persistent mood disorders (3) Attention-deficit hyperactivity disorder, unspecified type: Status: Acute Code(s): F90.9 - Attention-deficit hyperactivity disorder, unspecified type (4) Alcohol abuse: Status: Acute Code(s): F10.10 - Alcohol abuse, uncomplicated (5) PTSD (post-traumatic stress disorder): Status: Acute Code(s): F43.10 - Post-traumatic stress disorder, unspecified (6) Other mixed anxiety disorders: Status: Acute Code(s): F41.3 - Other mixed anxiety disorders Plan continue PHP increase oxcarbazepine to 300 mg bid continue Vyvanse 40 mg qam continue naltrexone 50 mg qhs start guanfacine ER 1 mg qd start vitamin B12 and weekly vitamin D2 supplementation continue other regular medications Routine lab work lab reviewed with patient EKG, routine for baseline QTc for medication considerations as indicated VS reviewed: afebrile, BP 100/70;?72 bpm Continue to monitor Patient educated on: diagnosis, medication risk/benefits and substance abuse Informed Consent: understands Reason for contiued partial hosp. stay Substantial Risk for: med/psych decompensation Certification I certify that partial hospital treatment is medically necessary due to the symptoms and problems resulting from the patient's mental illness and the failure to treat the patient at the partial hospital level of care would likely result in the patient requiring inpatient psychiatric care which could not be prevented at a less intensive level of care. Total time managing care of this patient today __30__ minutes. Discharge Plan Discharge Attending provider: Krystyna Buenrostro Additional Instructions: Emily's new appt at [facility] for CSP is scheduled for: Apr.01 at 1:30 pm [address] [place] Intake with Nando Medications: New mecobalamin (vitamin B12) [B12 Active] 1,000 mcg tablet,chewable 1,000 mcg PO DAILY Qty: 30 2RF ergocalciferol (vitamin D2) [Vitamin D2] 1,250 mcg (50,000 unit) capsule 1,250 mcg PO QWEEK Qty: 14 0RF Continued albuterol sulfate 90 mcg/actuation HFA aerosol inhaler 2 puff INHALATION Q6H PRN (Reason: wheezing) oxcarbazepine 300 mg tablet 300 mg PO BID 14 Days Qty: 28 0RF Rx Instructions: please stop rx for lamotrigine and any other rx for oxcarbazepine on file lisdexamfetamine 50 mg capsule 50 mg PO QAM Qty: 14 0RF Rx Instructions: Partial Fill upon patient request. Changed gabapentin 100 mg capsule See Rx Instructions .ROUTE .COMPLEX 14 Days Qty: 42 0RF Rx Instructions: Take 1 cap po tid prn for anxiety Discontinued lamotrigine 25 mg tablet See Rx Instructions .ROUTE .COMPLEX Rx Instructions: TAKE 1 TAB BY MOUTH DAILY FOR 2 WEEKS THEN 2 TABS BY MOUTH DAILY dextroamphetamine-amphetamine 20 mg capsule,extended release 24hr 2 cap PO QAM Rx Instructions: TAKE 2 CAPSULES BY MOUTH EVERY DAY IN THE MORNING No Action clonidine HCl 0.1 mg tablet 0.1 mg PO BEDTIME PRN (Reason: insomnia) Qty: 14 0RF naltrexone 50 mg tablet 50 mg PO BEDTIME Qty: 30 0RF hydroxyzine HCl 25 mg Tablet 75 mg PO BEDTIME PRN (Reason: Anxiety) Qty: 42 0RF escitalopram oxalate 10 mg Tablet 10 mg PO DAILY Qty: 14 0RF guanfacine 1 mg tablet extended release 24 hr 1 mg PO QAM Qty: 14 0RF Stand Alone Forms: Patient Portal Discharge page Patient Education: ADHD in Adults (ED), ADHD in Adults (DC), Depression (DC), Alcohol Use Disorder (DC) Print Language: Icelandic
--- NOTE | 2025-04-02 15:57 | P.PNPSP_ITS ---
Subjective Subjective Date of Service: 03/31/25 Reason For Visit: depression,PTSD,MDD,anxiety Interim History: We discussed slight bump up to 50 mg of Vyvanse, has been welll tolerated. Aside from some initial jitteriness, no issues now with Vyvanse. Feels it's more calming that Adderall. Guanfacine has been helpful with jitteriness and sleep. Focus on Adderall was at a 9 or 10 out of 10. On Vyvanse is more like 5 or 6 and feels there is room for improvement. Mood has been leveling out. SOme vague passive SI that come and goes more easily and feels this is an improvement from before. Occurred only a few times in recent days I would never do it... I think it comes more from self hate. I dont really want to be . Denies any current SI thoughts or intention, urge or plan to cynthia self. Sleep variable. Medication Compliance: Yes Side effects from medications: No Attending Groups: Yes Review of Systems Acute medical concerns: No Mental Status Exam Mental Status Exam Narrative: Appearance: Casually dressed. Grooming/hygiene wnl. Good eye contact Attitude:Cooperative Speech: Fluent and wnl in regard to volume, tone, prosody Motor activity: Calm and without any tics, tremors or dyskinesias. Steady gait Mood: as noted above Affect: appropriate, reactive Thought process: goal directed and without evidence of formal thought disorder Thought content: as noted above. Perception: does not appear to respond to internal stimuli Alert/oriented in all spheres Cognition grossly intact Insight: intact Judgment: fair Diagnostics Vital Signs (24Hr): BMI result Body Mass Index 45.6 Assessment & Plan Assessment & Plan (1) MDD (major depressive disorder), recurrent severe, without psychosis: Status: Acute Code(s): F33.2 - Major depressive disorder, recurrent severe without psychotic features (2) Other specified persistent mood disorders: Status: Acute Code(s): F34.89 - Other specified persistent mood disorders (3) Attention-deficit hyperactivity disorder, unspecified type: Status: Acute Code(s): F90.9 - Attention-deficit hyperactivity disorder, unspecified type (4) Alcohol abuse: Status: Acute Code(s): F10.10 - Alcohol abuse, uncomplicated (5) PTSD (post-traumatic stress disorder): Status: Acute Code(s): F43.10 - Post-traumatic stress disorder, unspecified (6) Other mixed anxiety disorders: Status: Acute Code(s): F41.3 - Other mixed anxiety disorders Plan continue PHP continue oxcarbazepine 300 mg bid increase Vyvanse to 50 mg qam continue naltrexone 50 mg qhs continue other regular medications Routine lab work lab reviewed EKG, routine for baseline QTc for medication considerations as indicated VS reviewed: afebrile, BP 100/70;?72 bpm Continue to monitor Patient educated on: diagnosis, medication risk/benefits and substance abuse Informed Consent: understands Reason for contiued partial hosp. stay Substantial Risk for: med/psych decompensation Certification I certify that partial hospital treatment is medically necessary due to the symptoms and problems resulting from the patient's mental illness and the failure to treat the patient at the partial hospital level of care would likely result in the patient requiring inpatient psychiatric care which could not be prevented at a less intensive level of care. Total time managing care of this patient today __30__ minutes. Discharge Plan Discharge Attending provider: Krsytyna Buenrostro Additional Instructions: Emily's new app[facility] at [facility] [place] is scheduled for: Apr.01 at 1:30 pm [address] MA Intake with Nando Medications: New mecobalamin (vitamin B12) [B12 Active] 1,000 mcg tablet,chewable 1,000 mcg PO DAILY Qty: 30 2RF ergocalciferol (vitamin D2) [Vitamin D2] 1,250 mcg (50,000 unit) capsule 1,250 mcg PO QWEEK Qty: 14 0RF Continued albuterol sulfate 90 mcg/actuation HFA aerosol inhaler 2 puff INHALATION Q6H PRN (Reason: wheezing) oxcarbazepine 300 mg tablet 300 mg PO BID 14 Days Qty: 28 0RF Rx Instructions: please stop rx for lamotrigine and any other rx for oxcarbazepine on file lisdexamfetamine 50 mg capsule 50 mg PO QAM Qty: 14 0RF Rx Instructions: Partial Fill upon patient request. Changed gabapentin 100 mg capsule See Rx Instructions .ROUTE .COMPLEX 14 Days Qty: 42 0RF Rx Instructions: Take 1 cap po tid prn for anxiety Discontinued lamotrigine 25 mg tablet See Rx Instructions .ROUTE .COMPLEX Rx Instructions: TAKE 1 TAB BY MOUTH DAILY FOR 2 WEEKS THEN 2 TABS BY MOUTH DAILY dextroamphetamine-amphetamine 20 mg capsule,extended release 24hr 2 cap PO QAM Rx Instructions: TAKE 2 CAPSULES BY MOUTH EVERY DAY IN THE MORNING No Action clonidine HCl 0.1 mg tablet 0.1 mg PO BEDTIME PRN (Reason: insomnia) Qty: 14 0RF naltrexone 50 mg tablet 50 mg PO BEDTIME Qty: 30 0RF hydroxyzine HCl 25 mg Tablet 75 mg PO BEDTIME PRN (Reason: Anxiety) Qty: 42 0RF escitalopram oxalate 10 mg Tablet 10 mg PO DAILY Qty: 14 0RF guanfacine 1 mg tablet extended release 24 hr 1 mg PO QAM Qty: 14 0RF Stand Alone Forms: Patient Portal Discharge page Patient Education: ADHD in Adults (ED), ADHD in Adults (DC), Depression (DC), Alcohol Use Disorder (DC) Print Language: Canadian
--- NOTE | 2025-04-03 18:29 | HO.PHPPROGNO ---
Subjective Subjective Date of Service: 04/03/25 Reason For Visit: depression,PTSD,MDD,anxiety Interim History: Patient seen for follow-up, anticipating discharge at the end of program today.? Pretty good, just anxious about leaving. Denies any alcohol use, denies cravings. Tolerating medicaitons including naltrexone which she feels has been helpful in supporting recovery. Lab work reviewed - deficient vit B12 level 194, vit D also low 22, will start B12 1000 mcg/d and weekly vit D2 other results. Other findings - elevated PTH may be related to low vitamin D, mildly elevated GGT, CRP with no clinical correlates. FIndings will be faxed to PCP to follow up. Reports no acute issues or concerns. Medication compliant, medications well-tolerated. Denies any adverse effects.? Mood is stable.? Denies any hopelessness or SI. Denies thoughts of harming self or others at this time. Denies any aggressive ideation or HI. Denies any paranoia or AH or VH. Sleep, appetite, energy stable. Medication Compliance: Yes Side effects from medications: No Attending Groups: Yes Review of Systems Acute medical concerns: No Review of Systems Review of Systems Yes all other systems are reviewed and are negative (Denies N/V or headache today. ) Mental Status Exam Mental Status Exam Narrative: Appearance: Casually dressed. Grooming/hygiene wnl. Good eye contact Attitude:Cooperative Speech: Fluent and wnl in regard to volume, tone, prosody Motor activity: Calm and without any tics, tremors or dyskinesias. Steady gait Mood: stable Affect: appropriate, reactive Thought process: goal directed and without evidence of formal thought disorder Thought content: future oriented, relevant to stressors Perception: does not appear to respond to internal stimuli Alert/oriented in all spheres Cognition grossly intact Insight: intact Judgment: fair Diagnostics Vital Signs (24Hr): BMI result Body Mass Index 45.6 Assessment & Plan Assessment & Plan (1) MDD (major depressive disorder), recurrent severe, without psychosis: Status: Acute Code(s): F33.2 - Major depressive disorder, recurrent severe without psychotic features (2) Other specified persistent mood disorders: Status: Acute Code(s): F34.89 - Other specified persistent mood disorders (3) Attention-deficit hyperactivity disorder, unspecified type: Status: Acute Code(s): F90.9 - Attention-deficit hyperactivity disorder, unspecified type (4) Alcohol abuse: Status: Acute Code(s): F10.10 - Alcohol abuse, uncomplicated (5) PTSD (post-traumatic stress disorder): Status: Acute Code(s): F43.10 - Post-traumatic stress disorder, unspecified (6) Other mixed anxiety disorders: Status: Acute Code(s): F41.3 - Other mixed anxiety disorders (7) Vitamin D insufficiency: Status: Acute Code(s): E55.9 - Vitamin D deficiency, unspecified (8) Vitamin B12 deficiency: Status: Acute Code(s): E53.8 - Deficiency of other specified B group vitamins Plan Discharge from [facility] lab work reviewed - viit B12 very low 194, vit D 22, will start B12 1000 mcg/d and weekly vit D2 other results Continue regular medications? Refills sent to pharmacy Will defer further medication management to outpatient provider *Safety plan reviewed *Discharge diagnoses, treatment course, discharge plan have been reviewed with patient (including medication regime, medication management, potential side effects) as well as treatment rationale were also revisited *Discharge paperwork signed and given to patient, copy sent for scanning to chart Patient educated on: diagnosis, medication risk/benefits and medical condition Informed Consent: understands Reason for contiued partial hosp. stay Substantial Risk for: stable for discharge Certification I certify that partial hospital treatment is medically necessary due to the symptoms and problems resulting from the patient's mental illness and the failure to treat the patient at the partial hospital level of care would likely result in the patient requiring inpatient psychiatric care which could not be prevented at a less intensive level of care. Total time managing care of this patient today ____ minutes. Discharge Plan Discharge Attending provider: Krystyna Buenrostro Additional Instructions: Emily's new appt at [facility] for CSP is scheduled for: Apr.01 at 1:30 pm [address] Manriquez MA Intake with Nando Medications: New naltrexone 50 mg tablet 50 mg PO BEDTIME Qty: 30 0RF oxcarbazepine 300 mg tablet 300 mg PO BID 14 Days Qty: 28 0RF Rx Instructions: please stop rx for lamotrigine and any other rx for oxcarbazepine on file mecobalamin (vitamin B12) [B12 Active] 1,000 mcg tablet,chewable 1,000 mcg PO DAILY Qty: 30 2RF ergocalciferol (vitamin D2) [Vitamin D2] 1,250 mcg (50,000 unit) capsule 1,250 mcg PO QWEEK Qty: 14 0RF guanfacine 1 mg tablet extended release 24 hr 1 mg PO DAILY Qty: 20 0RF lisdexamfetamine 50 mg capsule 50 mg PO QAM Qty: 14 0RF Rx Instructions: Partial Fill upon patient request. Continued clonidine HCl 0.1 mg tablet 0.1 mg PO BEDTIME PRN (Reason: insomnia) escitalopram oxalate 10 mg Tablet 10 mg PO DAILY hydroxyzine HCl 25 mg Tablet 25 mg PO BID PRN (Reason: Anxiety) albuterol sulfate 90 mcg/actuation HFA aerosol inhaler 2 puff INHALATION Q6H PRN (Reason: wheezing) Changed gabapentin 100 mg capsule See Rx Instructions .ROUTE .COMPLEX 14 Days Qty: 42 0RF Rx Instructions: Take 1 cap po tid prn for anxiety Discontinued lamotrigine 25 mg tablet See Rx Instructions .ROUTE .COMPLEX Rx Instructions: TAKE 1 TAB BY MOUTH DAILY FOR 2 WEEKS THEN 2 TABS BY MOUTH DAILY dextroamphetamine-amphetamine 20 mg capsule,extended release 24hr 2 cap PO QAM Rx Instructions: TAKE 2 CAPSULES BY MOUTH EVERY DAY IN THE MORNING Stand Alone Forms: Patient Portal Discharge page Patient Education: ADHD in Adults (ED), ADHD in Adults (DC), Depression (DC), Alcohol Use Disorder (DC) Print Language: Filipino
== END 2025-04-03 23:59 | disposition home or self-care (01) ==
LOC: HO.PHPA 10:00
PROVIDERS: Visit Provider Psychiatry & Neurology Psychiatry
DX: F33.2 Major depressive disorder, recurrent severe without psychotic features (principal); F34.89 Other specified persistent mood disorders; F90.9 Attention-deficit hyperactivity disorder, unspecified type; F43.10 Post-traumatic stress disorder, unspecified; F41.3 Other mixed anxiety disorders; F10.10 Alcohol abuse, uncomplicated; E55.9 Vitamin D deficiency, unspecified; E53.8 Deficiency of other specified B group vitamins; Z79.899 Other long term (current) drug therapy
CPT/HCPCS: 80307; 90791; 90853

== ENCOUNTER → 2025-05-26 08:45 | Outpatient (BNV) | payer OTHER, SELFPAY | PROVIDERS: Visit Provider Psychiatry & Neurology Psychiatry | DX: F33.2 Major depressive disorder, recurrent severe without psychotic features (principal); F90.9 Attention-deficit hyperactivity disorder, unspecified type; F43.10 Post-traumatic stress disorder, unspecified; F10.10 Alcohol abuse, uncomplicated | CPT/HCPCS: 99213 ==

== ENCOUNTER 2025-06-05 10:30 | Outpatient (RCR) | payer OTHER, SELFPAY ==
[2025-04-28 09:26] VITALS: BMI 46.2
[2025-04-28 09:27] VITALS: BP 105/86; PULSE 75; TEMP 36.2
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
--- NOTE | 2025-05-02 08:11 | HO.PHP ---
PHP staff member received a Voicemail on the admin's phone from Emily stating that she will not be in attendance to program today due to her daughter being home sick and she has no summer child caregiver for her. Emily said she has no safety concerns but if we would like to call to follow up we could. PHP staff member reached out to Emily to follow up regarding her voicemail. Emily expressed that her daughter has been throwing up and she is unable to send her to school or get childcare, therefore, she is unable to come. Emily did note that she is still struggling with her depression and working on that. PHP staff member explored if Emily is experiencing any SI, plan or intent. Emily noted that she is not and is safe. PHP staff member explored if Emily has been experiencing cravings. Emily stated at times she is but that has been improving because she has been staying away from it. PHP staff member praised Emily. PHP staff member reminded Emily that we are off this Monday for the Holiday so it will be a long weekend and explored if she has any plans. Emily noted that she is going to be spending the weekend at her friends house. PHP staff was receptive. Emily will be in attendance to program on Monday.
--- NOTE | 2025-05-14 16:30 | P.PNPSP_ITS ---
Subjective Subjective Date of Service: 05/14/25 Reason For Visit: anxiety,depression,PTSD Interim History: I still just getting by still not been taking my ADHD meds like you said she did take one over a week ago and could tell a difference with cognition and functioning. Motivation r emains low. Definitely improved when taking Vyvanse. She is still working at sobriety, though having periodic slips ups. Once last week, but says she was able to stop herself from drinking. She continues to forget to take the naltrexone. She acknowledges she hasn't taken it consistently enough to know whether it is helping with cravings or not. She notes relapsing on the medication a few weeks ago so she assumes it wasn't doing much. Mood stability today 11/30, some mild improvement from 09/30 on admission. Irritability severity also iimproved from or 04/02, today is down to a 4 or 5/10. She is prescribed guanfacine ER but says she forgets to take it. Continues clonidine at night. Does not take during the day for anxiety as too sedating, even with a stimulant, but help w with sleep, so will have her restart guanfacine in AM with Vyvanse to target anxiety and mitigate racing heart/sympathetic CV response. Medication Compliance: Yes Side effects from medications: No Attending Groups: Yes Review of Systems Acute medical concerns: No Mental Status Exam Mental Status Exam Narrative: Alert, oriented, in no acute distress. Calm, cooperative, engaged. No psychomo tor agitation or neurovegetative retardation. Eye contact maintained. Mood less depressed, affect variable. Speech normal. Thought process linear, coherent. Thought content related to stressors, +cravings, denies hopelessness, denies SI or HI. No paranoia or delusional content elicited. No evidence of psychosis. Insight and judgment - fair but adequate. Diagnostics Vital Signs (24Hr): BMI result Body Mass Index 46.2 Assessment & Plan Assessment & Plan (1) MDD (major depressive disorder), recurrent severe, without psychosis: Status: Acute Code(s): F33.2 - Major depressive disorder, recurrent severe without psychotic features (2) Alcohol abuse: Status: Acute Code(s): F10.10 - Alcohol abuse, uncomplicated (3) Attention-deficit hyperactivity disorder, unspecified type: Status: Acute Code(s): F90.9 - Attention-deficit hyperactivity disorder, unspecified type (4) PTSD (post-traumatic stress disorder): Status: Acute Code(s): F43.10 - Post-traumatic stress disorder, unspecified (5) JESSE (generalized anxiety disorder): Status: Inactive Code(s): F41.1 - Generalized anxiety disorder Plan continue PHP start bupropion SR 50-100 mg qam cont to hold Vyvanse, plan start back once WB started cont guanfacine ER 1 mg qAM cont Lexapro 10 mg qd cont Trileptal 300 mg BID cont clonidine 0.1 mg qHS cont naltrexone 50 mg qd cont vitamin B12 1000 mcg cont albuterol prn Routine lab work lab slip given to check routine, GGT, lipase EKG, routine for baseline QTc for medication considerations as indicated UDS as indicated MassPat reviewed Continue to monitor as per protocol Patient educated on: diagnosis, medication risk/benefits and substance abuse Informed Consent: understands Reason for contiued partial hosp. stay Substantial Risk for: inability to function and med/psych decompensation Certification I certify that partial hospital treatment is medically necessary due to the symptoms and problems resulting from the patient's mental illness and the failure to treat the patient at the partial hospital level of care would likely result in the patient requiring inpatient psychiatric care which could not be prevented at a less intensive level of care. Total time managing care of this patient today __30__ minutes. Discharge Plan Discharge Attending provider: Krystyna Buenrostro Medications: New bupropion HCl 100 mg tablet sustained-release 12 hr 100 mg PO QAM Qty: 30 0RF Continued naltrexone 50 mg tablet 50 mg PO BEDTIME Qty: 30 0RF ergocalciferol (vitamin D2) [Vitamin D2] 1,250 mcg (50,000 unit) capsule 1,250 mcg PO QWEEK Qty: 14 0RF mecobalamin (vitamin B12) [B12 Active] 1,000 mcg tablet,chewable 1,000 mcg PO DAILY Qty: 30 2RF clonidine HCl 0.1 mg tablet 0.1 mg PO BEDTIME PRN (Reason: insomnia) Qty: 14 0RF oxcarbazepine 300 mg tablet 300 mg PO BID 14 Days Qty: 28 0RF Rx Instructions: please stop rx for lamotrigine and any other rx for oxcarbazepine on file albuterol sulfate 90 mcg/actuation HFA aerosol inhaler 2 puff INHALATION Q6H PRN (Reason: wheezing) gabapentin 100 mg capsule See Rx Instructions .ROUTE .COMPLEX 14 Days Qty: 42 0RF Rx Instructions: Take 1 cap po tid prn for anxiety lisdexamfetamine 50 mg capsule 50 mg PO QAM Qty: 14 0RF Rx Instructions: Partial Fill upon patient request. Changed guanfacine 1 mg tablet extended release 24 hr 1 mg PO QAM Qty: 14 0RF hydroxyzine HCl 25 mg Tablet 75 mg PO BEDTIME PRN (Reason: Anxiety) Qty: 42 0RF Discontinued escitalopram oxalate 10 mg Tablet 10 mg PO DAILY Print Language: Ugandan
--- NOTE | 2025-05-22 16:41 | HO.PHPPROGNO ---
Subjective Subjective Date of Service: 05/21/25 Reason For Visit: anxiety,depression,PTSD Interim History: Mood today not great, yesterday was better Had delays getting meds, so has not started on Wellbutrin yet but to target ADHD depression and continue on Trileptal for mood, irritability, impulse control. Has been taking naltrexone urges are a lot less but still has a slip up every so many days. Last drink was Monday 4 days ago. Im normally not this depressed. She denies any h/h/SI. Vyvanse she felt was helpful for her mood, Medication Compliance: Yes Side effects from medications: No Attending Groups: Yes Review of Systems Acute medical concerns: No Mental Status Exam Mental Status Exam Narrative: Alert, oriented, in no acute distress. Calm, cooperative, engaged. No psychomotor agitation or neurovegetative retardation. Eye contact maintained. Mood less depressed, affect variable. Speech normal. Thought process linear, coherent. Thought content related to stressors, +cravings, denies hopelessness, denies SI or HI. No paranoia or delusional content elicited. No evidence of psychosis. Insight and judgment - fair but adequate. Diagnostics Vital Signs (24Hr): BMI result Body Mass Index 46.2 Assessment & Plan Assessment & Plan (1) MDD (major depressive disorder), recurrent severe, without psychosis: Status: Acute Code(s): F33.2 - Major depressive disorder, recurrent severe without psychotic features (2) Attention-deficit hyperactivity disorder, unspecified type: Status: Acute Code(s): F90.9 - Attention-deficit hyperactivity disorder, unspecified type (3) PTSD (post-traumatic stress disorder): Status: Acute Code(s): F43.10 - Post-traumatic stress disorder, unspecified (4) Alcohol abuse: Status: Acute Code(s): F10.10 - Alcohol abuse, uncomplicated (5) JESSE (generalized anxiety disorder): Status: Inactive Code(s): F41.1 - Generalized anxiety disorder Plan increase WB SR to 100 mg qam continue other regular medications Patient educated on: diagnosis and medication risk/benefits Informed Consent: understands Reason for contiued partial hosp. stay Substantial Risk for: med/psych decompensation Certification I certify that partial hospital treatment is medically necessary due to the symptoms and problems resulting from the patient's mental illness and the failure to treat the patient at the partial hospital level of care would likely result in the patient requiring inpatient psychiatric care which could not be prevented at a less intensive level of care. Total time managing care of this patient today __30__ minutes. Discharge Plan Discharge Attending provider: Krystyna Buenrostro Medications: New bupropion HCl 100 mg tablet sustained-release 12 hr 100 mg PO QAM Qty: 30 0RF Continued naltrexone 50 mg tablet 50 mg PO BEDTIME Qty: 30 0RF ergocalciferol (vitamin D2) [Vitamin D2] 1,250 mcg (50,000 unit) capsule 1,250 mcg PO QWEEK Qty: 14 0RF mecobalamin (vitamin B12) [B12 Active] 1,000 mcg tablet,chewable 1,000 mcg PO DAILY Qty: 30 2RF clonidine HCl 0.1 mg tablet 0.1 mg PO BEDTIME PRN (Reason: insomnia) Qty: 14 0RF oxcarbazepine 300 mg tablet 300 mg PO BID 14 Days Qty: 28 0RF Rx Instructions: please stop rx for lamotrigine and any other rx for oxcarbazepine on file albuterol sulfate 90 mcg/actuation HFA aerosol inhaler 2 puff INHALATION Q6H PRN (Reason: wheezing) gabapentin 100 mg capsule See Rx Instructions .ROUTE .COMPLEX 14 Days Qty: 42 0RF Rx Instructions: Take 1 cap po tid prn for anxiety lisdexamfetamine 50 mg capsule 50 mg PO QAM Qty: 14 0RF Rx Instructions: Partial Fill upon patient request. Changed guanfacine 1 mg tablet extended release 24 hr 1 mg PO QAM Qty: 14 0RF hydroxyzine HCl 25 mg Tablet 75 mg PO BEDTIME PRN (Reason: Anxiety) Qty: 42 0RF Discontinued escitalopram oxalate 10 mg Tablet 10 mg PO DAILY Print Language: Tuvaluan
--- NOTE | 2025-05-26 12:36 | P.PNPSP_ITS ---
Subjective Subjective Date of Service: 05/26/25 Reason For Visit: anxiety,depression,PTSD Medical Problems Affecting Mental Status: Yes (has nurse who manages her medications at home- ?) Interim History: 34 yo who has not updated 1 x wk nurse with med changes provider suggested last week - so has not taken: naltrexone ( also had it confused with antabuse) and has not started guanfacine er which needs to be added in am as pt on clonidine at night- Medication Compliance: No Side effects from medications: No Attending Groups: Yes Review of Systems Acute medical concerns: No Medical Review of Systems: unchanged Mental Status Exam Mental Status Exam Patient Appearance: Disheveled Patient Orientation: Person, Place, Time and Situation Level of Consciousness: Awake Patient Behavior: Appropriate and Dependent Mood Description: Anxious Affect Description: Blunted and Apprehensive Patient Cognition Impaired: No Ability to Follow Directions: Fair Speech Pattern: Clear Hallucinations: None Delusions: Not Present Thought Process: Intact Thought Content: positive for [place] Depressive Symptoms: Diff. Making Decisions Judgement: Fair (-poor) Diagnostics Vital Signs (24Hr): BMI result Body Mass Index 46.2 Assessment & Plan Assessment & Plan (1) MDD (major depressive disorder), recurrent severe, without psychosis: Status: Acute Code(s): F33.2 - Major depressive disorder, recurrent severe without psychotic features (2) Attention-deficit hyperactivity disorder, unspecified type: Status: Acute Code(s): F90.9 - Attention-deficit hyperactivity disorder, unspecified type (3) PTSD (post-traumatic stress disorder): Status: Acute Code(s): F43.10 - Post-traumatic stress disorder, unspecified (4) Alcohol abuse: Status: Acute Code(s): F10.10 - Alcohol abuse, uncomplicated Plan clarified medication trials and for what- Patient educated on: medication risk/benefits Informed Consent: understands and further education needed Reason for contiued partial hosp. stay Substantial Risk for: rapid decompensation Certification I certify that partial hospital treatment is medically necessary due to the symptoms and problems resulting from the patient's mental illness and the failure to treat the patient at the partial hospital level of care would likely result in the patient requiring inpatient psychiatric care which could not be prevented at a less intensive level of care. Total time managing care of this patient today ____ minutes. Discharge Plan Discharge Attending provider: Patenaude,Krystyna Medications: New bupropion HCl 100 mg tablet sustained-release 12 hr 100 mg PO QAM Qty: 30 0RF Continued naltrexone 50 mg tablet 50 mg PO BEDTIME Qty: 30 0RF ergocalciferol (vitamin D2) [Vitamin D2] 1,250 mcg (50,000 unit) capsule 1,250 mcg PO QWEEK Qty: 14 0RF mecobalamin (vitamin B12) [B12 Active] 1,000 mcg tablet,chewable 1,000 mcg PO DAILY Qty: 30 2RF clonidine HCl 0.1 mg tablet 0.1 mg PO BEDTIME PRN (Reason: insomnia) Qty: 14 0RF oxcarbazepine 300 mg tablet 300 mg PO BID 14 Days Qty: 28 0RF Rx Instructions: please stop rx for lamotrigine and any other rx for oxcarbazepine on file albuterol sulfate 90 mcg/actuation HFA aerosol inhaler 2 puff INHALATION Q6H PRN (Reason: wheezing) gabapentin 100 mg capsule See Rx Instructions .ROUTE .COMPLEX 14 Days Qty: 42 0RF Rx Instructions: Take 1 cap po tid prn for anxiety lisdexamfetamine 50 mg capsule 50 mg PO QAM Qty: 14 0RF Rx Instructions: Partial Fill upon patient request. Changed guanfacine 1 mg tablet extended release 24 hr 1 mg PO QAM Qty: 14 0RF hydroxyzine HCl 25 mg Tablet 75 mg PO BEDTIME PRN (Reason: Anxiety) Qty: 42 0RF Discontinued escitalopram oxalate 10 mg Tablet 10 mg PO DAILY Print Language: [place]
--- NOTE | 2025-05-26 13:11 | HO.PHPPROGNO ---
Subjective Subjective Reason For Visit: anxiety,depression,PTSD Diagnostics Vital Signs (24Hr): BMI result Body Mass Index 46.2 Assessment & Plan Certification I certify that partial hospital treatment is medically necessary due to the symptoms and problems resulting from the patient's mental illness and the failure to treat the patient at the partial hospital level of care would likely result in the patient requiring inpatient psychiatric care which could not be prevented at a less intensive level of care. Total time managing care of this patient today ____ minutes. Discharge Plan Discharge Attending provider: Krystyna Buenrostro Medications: New bupropion HCl 100 mg tablet sustained-release 12 hr 100 mg PO QAM Qty: 30 0RF Continued naltrexone 50 mg tablet 50 mg PO BEDTIME Qty: 30 0RF ergocalciferol (vitamin D2) [Vitamin D2] 1,250 mcg (50,000 unit) capsule 1,250 mcg PO QWEEK Qty: 14 0RF mecobalamin (vitamin B12) [B12 Active] 1,000 mcg tablet,chewable 1,000 mcg PO DAILY Qty: 30 2RF clonidine HCl 0.1 mg tablet 0.1 mg PO BEDTIME PRN (Reason: insomnia) Qty: 14 0RF oxcarbazepine 300 mg tablet 300 mg PO BID 14 Days Qty: 28 0RF Rx Instructions: please stop rx for lamotrigine and any other rx for oxcarbazepine on file albuterol sulfate 90 mcg/actuation HFA aerosol inhaler 2 puff INHALATION Q6H PRN (Reason: wheezing) gabapentin 100 mg capsule See Rx Instructions .ROUTE .COMPLEX 14 Days Qty: 42 0RF Rx Instructions: Take 1 cap po tid prn for anxiety lisdexamfetamine 50 mg capsule 50 mg PO QAM Qty: 14 0RF Rx Instructions: Partial Fill upon patient request. Changed guanfacine 1 mg tablet extended release 24 hr 1 mg PO QAM Qty: 14 0RF hydroxyzine HCl 25 mg Tablet 75 mg PO BEDTIME PRN (Reason: Anxiety) Qty: 42 0RF Print Language: Macedonian
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
== END 2025-06-05 23:59 | disposition home or self-care (01) ==
LOC: HO.PHPA 10:30
PROVIDERS: Visit Provider Psychiatry & Neurology Psychiatry
DX: F33.2 Major depressive disorder, recurrent severe without psychotic features (principal); F10.10 Alcohol abuse, uncomplicated; F90.9 Attention-deficit hyperactivity disorder, unspecified type; F43.10 Post-traumatic stress disorder, unspecified; F41.1 Generalized anxiety disorder; Z79.899 Other long term (current) drug therapy
CPT/HCPCS: 90791; 90853